=== PATIENT | male | born 1975 | race Caucasian/White ===

== ENCOUNTER 2017-07-14 13:41 | Emergency (ER) | payer OTHER, BC ==
[~2017-07-14] VITALS: Ht 177.8 cm; Wt 79.5 kg
[2017-07-14 13:42] VITALS: BP 142/81; PULSE 95; RESP 15; TEMP 98.1; O2SAT 99
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
[2017-07-14] MEDS ORDERED: CYCL1TAB29 PO (15:53)
[2017-07-14] MEDS ORDERED: MAPA500T13 PO (15:53)
[2017-07-14] MEDS ORDERED: IBUP800T23 PO (15:53)
== END 2017-07-14 16:15 | disposition home or self-care (01) ==
LOC: NEPK 13:41
DX: M54.2 Cervicalgia (principal); R51 Headache; V09.9XXA Pedestrian injured in unspecified transport accident, initial encounter; Z72.0 Tobacco use
CPT/HCPCS: 70450; 72125; 73502